=== PATIENT | male | born 1945 | race Caucasian/White ===

== ENCOUNTER 2016-11-14 09:10 | Outpatient (CLI) | payer MEDICARE, OTHER ==
[2016-11-14 10:59] LABS: Anion Gap 16 mmol/L (10-20); BUN (Urea Nitrogen) 19 mg/dL (8.4-25.7); Calc. Creatinine Clearance 0 mL/min (70-130); Calcium 9.6 mg/dL (7.8-10.44); Carbon Dioxide 24 mmol/L (23-31); Chloride 104 mmol/L (98-107); Estimated GFR-MDRD 51; Glucose 119 mg/dL (80-115); Potassium 4.9 mmol/L (3.5-5.1); Sodium 139 mmol/L (136-145)
== END 2016-11-14 09:11 | disposition home or self-care (01) ==
LOC: NAV LAB 09:10
PROVIDERS: ATTEND Internal Medicine Cardiovascular Disease
DX: I10 Essential (primary) hypertension (principal); E66.9 Obesity, unspecified; Z95.1 Presence of aortocoronary bypass graft
CPT/HCPCS: 36415; 80048

== ENCOUNTER 2016-12-26 09:59 | Outpatient (CLI) | payer MEDICARE, OTHER ==
[2016-12-26 12:27] LABS: #Basophils 0.1 thou/uL (0.0-0.2); #Eosinphils 0.2 thou/uL (0.0-0.7); #Lymphocytes 2.2 thou/uL (1.20-3.40); #Monocytes 0.5 thou/uL (0.11-0.59); #Neutrophils 4.4 thou/uL (1.40-6.50); %Basophils 0.8 % (0.0-1.0); %Eosinophils 2.9 % (0.0-10.0); %Lymphocytes 29.3 % (21.0-51.0); %Monocytes 6.8 % (0.0-10.0); %Neutrophils 60.2 % (42.0-75.0); Hemoglobin 15.6 g/dL (14.0-18.0); Mean Corpuscular HGB CONC 32.4 g/dL (32.0-36.0); Mean Corpuscular Hemoglobin 30.1 pg (27.0-31.0); Mean Corpuscular Volume 92.7 fl (80.0-94.0); Mean Platelet Volume 8.4 fL (7.4-10.4); Platelet Count 224 thou/uL (130-400); RBC Distribution Width 12.8 % (11.5-14.5); Red Blood Cell (RBC) Count 5.19 mill/uL (4.70-6.10); White Blood Cell (WBC) Count 7.4 thou/uL (4.8-10.8)
[2016-12-26 12:30] LABS: Hemoglobin A1c 6.3 % (4.0-6.0)
[2016-12-26 12:38] LABS: ALT (SGPT) 18 U/L (8-55); AST (SGOT) 19 U/L (5-34); Albumin 4.7 g/dL (3.4-4.8); Alkaline Phosphatase 77 U/L (40-150); Anion Gap 17 mmol/L (10-20); BUN (Urea Nitrogen) 24 mg/dL (8.4-25.7); Bilirubin, Total 0.6 mg/dL (0.2-1.2); Calc. Creatinine Clearance 0 mL/min (70-130); Calcium 10.2 mg/dL (7.8-10.44); Carbon Dioxide 26 mmol/L (23-31); Cardiac Risk 6.5 (Less than 4.5); Chloride 102 mmol/L (98-107); Cholesterol 214 mg/dl (< 200 Desired); Estimated GFR-MDRD 48; Globulin 2.8 g/dL (2.4-3.5); Glucose 128 mg/dL (80-115); HDL Cholesterol 33 mg/dL (>60 Neg Risk); LDL Cholesterol, Calculated 118 mg/dL; Protein, Total 7.5 g/dL (5.8-8.1); Sodium 140 mmol/L (136-145); Triglycerides 317 mg/dL (Less than 150)
[2016-12-26 18:06] LABS: Creatinine, Urine 96.8 mg/dL (63-166); Microalbumin Urine 2.7 mg/dL (0.5-50.0); Microalbumin/Creat Ratio 27.9 mg/g (Less than 30)
== END 2016-12-26 10:00 | disposition home or self-care (01) ==
LOC: NAVSJIPCSP 09:59
PROVIDERS: ATTEND Internal Medicine
DX: E78.2 Mixed hyperlipidemia (principal); I10 Essential (primary) hypertension; Z95.1 Presence of aortocoronary bypass graft; W57.XXXA Bitten or stung by nonvenomous insect and other nonvenomous arthropods, initial encounter
CPT/HCPCS: 36415; 80053; 80061; 82043; 83036; 85025; 86618

== ENCOUNTER 2017-02-16 12:40 | Emergency (ER) | payer MEDICARE, OTHER ==
[2017-02-16] MEDS ORDERED: Adacel (T-DAP) 0.5 ML VIAL ONE (13:13)
[2017-02-16] MEDS ORDERED: cefTRIAXone\\ROCEPHIN 1 GM VIAL ONE (13:13)
[2017-02-16] MEDS ORDERED: Lidocaine 1% 20 ML MDV ONE (13:14)
[2017-02-16] MEDS ORDERED: Triple Antibiotic Oint 1 GM Packet ONE (13:28)
== END 2017-02-16 13:35 | disposition home or self-care (01) ==
LOC: NAV ERS 12:40
DX: S91.332A Puncture wound without foreign body, left foot, initial encounter (principal); L03.116 Cellulitis of left lower limb; E11.9 Type 2 diabetes mellitus without complications; E78.5 Hyperlipidemia, unspecified; I10 Essential (primary) hypertension; E66.9 Obesity, unspecified; Z79.82 Long term (current) use of aspirin; Z79.899 Other long term (current) drug therapy; W45.0XXA Nail entering through skin, initial encounter
CPT/HCPCS: 87070; 87077; 87186; 87205; 90471; 90715; 96372; J0696; J2001

== ENCOUNTER 2017-03-10 09:15 | Outpatient (CLI) | payer MEDICARE, OTHER ==
[2017-03-10 09:58] LABS: Cardiac Risk 4.4 (Less than 4.5)
== END 2017-03-10 09:16 | disposition home or self-care (01) ==
LOC: NAV LAB 09:15
PROVIDERS: ATTEND Internal Medicine Cardiovascular Disease
DX: I10 Essential (primary) hypertension (principal); R07.89 Other chest pain; Z95.1 Presence of aortocoronary bypass graft
CPT/HCPCS: 36415; 80061

== ENCOUNTER 2018-04-14 10:56 | Emergency (ER) | payer MEDICARE, OTHER | END 2018-04-14 11:28 | disposition home or self-care (01) | LOC: NAV ERS 10:56 | DX: R21 Rash and other nonspecific skin eruption (principal); E78.5 Hyperlipidemia, unspecified; I25.10 Atherosclerotic heart disease of native coronary artery without angina pectoris; I10 Essential (primary) hypertension; E66.9 Obesity, unspecified; Z79.899 Other long term (current) drug therapy; Z79.82 Long term (current) use of aspirin | CPT/HCPCS: 99282 ==

== ENCOUNTER 2018-12-19 22:33 | Emergency (ER) | payer MEDICARE, OTHER ==
[2018-12-19] MEDS ORDERED: Sodium Chloride 0.9% 1,000 ML ONE (22:54)
[2018-12-19 23:02] LABS: #Basophils 0.1 thou/uL (0.0-0.2); #Eosinphils 0.2 thou/uL (0.0-0.7); #Monocytes 0.8 thou/uL (0.11-0.59); #Neutrophils 6.5 thou/uL (1.40-6.50); %Basophils 1.1 % (0.0-1.0); %Eosinophils 1.7 % (0.0-10.0); %Lymphocytes 20.7 % (21.0-51.0); %Monocytes 8.8 % (0.0-10.0); %Neutrophils 67.8 % (42.0-75.0); Hemoglobin 14.5 g/dL (14.0-18.0); Mean Corpuscular HGB CONC 33.9 g/dL (32.0-36.0); Mean Corpuscular Volume 91.5 fL (78.0-98.0); Mean Platelet Volume 7.5 fL (7.4-10.4); Platelet Count 241 thou/uL (130-400); RBC Distribution Width 12.8 % (11.5-14.5); Red Blood Cell (RBC) Count 4.68 mill/uL (4.70-6.10); White Blood Cell (WBC) Count 9.6 thou/uL (4.8-10.8)
[2018-12-19] MEDS ORDERED: Ondansetron PF 4 MG/2 ML Vial ONE (23:05)
[2018-12-19 23:06] LABS: MDiff Complete? YES; Manual Diff?? NO
[2018-12-19 23:15] LABS: Lactic Acid 2.1 mmol/L (0.5-2.2)
[2018-12-19 23:23] LABS: ALT (SGPT) 25 U/L (8-55); AST (SGOT) 30 U/L (5-34); Albumin 4.1 g/dL (3.4-4.8); Alkaline Phosphatase 65 U/L (40-150); Anion Gap 17 mmol/L (10-20); BUN (Urea Nitrogen) 25 mg/dL (8.4-25.7); Bilirubin, Total 0.3 mg/dL (0.2-1.2); CK (CPK) 183 U/L (30-200); Calc. Creatinine Clearance 0 mL/min (70-130); Calcium 9.5 mg/dL (7.8-10.44); Carbon Dioxide 23 mmol/L (23-31); Chloride 103 mmol/L (98-107); Estimated GFR-MDRD 42; Globulin 3.2 g/dL (2.4-3.5); Glucose 195 mg/dL (83-110); Magnesium 2.8 mg/dL (1.6-2.6); Potassium 3.9 mmol/L (3.5-5.1); Protein, Total 7.3 g/dL (5.8-8.1); Sodium 139 mmol/L (136-145)
== END 2018-12-20 00:19 | disposition home or self-care (01) ==
LOC: NAV ERS 22:33
DX: T67.5XXA Heat exhaustion, unspecified, initial encounter (principal); I12.9 Hypertensive chronic kidney disease with stage 1 through stage 4 chronic kidney disease, or unspecified chronic kidney disease; N18.9 Chronic kidney disease, unspecified; E78.5 Hyperlipidemia, unspecified; E66.9 Obesity, unspecified; Z79.899 Other long term (current) drug therapy; Z79.82 Long term (current) use of aspirin
CPT/HCPCS: 36416; 80053; 82550; 83605; 83735; 84484; 85025; 93005; 94760; 96374; 36415-59; J2405; J7050

== ENCOUNTER 2019-08-30 20:54 | Emergency (ER) | payer MEDICARE, OTHER | END 2019-08-30 21:21 | disposition home or self-care (01) | LOC: NAV ERS 20:54 | DX: B34.9 Viral infection, unspecified (principal); E66.9 Obesity, unspecified; I25.10 Atherosclerotic heart disease of native coronary artery without angina pectoris; R73.03 Prediabetes; I10 Essential (primary) hypertension; E78.5 Hyperlipidemia, unspecified; E78.00 Pure hypercholesterolemia, unspecified; Z79.82 Long term (current) use of aspirin; Z79.899 Other long term (current) drug therapy | CPT/HCPCS: 99283 ==

== ENCOUNTER 2020-06-29 20:04 | Emergency (ER) | payer MEDICARE, OTHER ==
[2020-06-29] MEDS ORDERED: Ketorolac Tromethamine 30 MG/ML VIAL ONE (21:04)
--- NOTE | 2020-06-29 22:13 | RAD ---
RIGHT SHOULDER RADIOGRAPHS THREE VIEWS: 06/29/20 PROVIDED CLINICAL HISTORY: Pain status post injury. FINDINGS: There is no evidence for fracture or other acute osseous abnormality. If there is persistent clinical concern, conservative management and follow-up imaging are advised. IMPRESSION: As above. POS: [facility]
== END 2020-06-29 21:24 | disposition home or self-care (01) ==
LOC: NAV ERS 20:04
DX: M25.511 Pain in right shoulder (principal); E78.5 Hyperlipidemia, unspecified; E78.00 Pure hypercholesterolemia, unspecified; Z79.82 Long term (current) use of aspirin; Z79.899 Other long term (current) drug therapy; V89.2XXA Person injured in unspecified motor-vehicle accident, traffic, initial encounter
CPT/HCPCS: 96372; J1885

== ENCOUNTER 2020-12-19 16:12 | Emergency (ER) | payer MEDICARE, OTHER ==
[2020-12-19] MEDS ORDERED: predniSONE 20 MG TAB ONE (17:09)
== END 2020-12-19 17:15 | disposition home or self-care (01) ==
LOC: NAV ERS 16:12
DX: R21 Rash and other nonspecific skin eruption (principal); E78.5 Hyperlipidemia, unspecified; I10 Essential (primary) hypertension; Z79.899 Other long term (current) drug therapy
CPT/HCPCS: 99282; J7512

== ENCOUNTER 2021-04-14 15:16 | Inpatient (IN) | payer MEDICARE, OTHER ==
[2021-04-14] MEDS ORDERED: Nitroglycerin 0.4 MG TAB (25 Tab Bottle) SL PRN (22:40)
[2021-04-14] MEDS ORDERED: oxyCODONE 5 MG TAB PO PRN (22:41)
[2021-04-14] MEDS ORDERED: traMADol HCl 50 MG TAB PO PRN (22:44)
[2021-04-15] MEDS: Hyoscyamine Sulfate SL 0.125 mg Tablet SL PRN ×4 (02:51→20:28)
[2021-04-15] MEDS: Betamethasone Val 0.1% OINT 15 GM TUBE TOP PRN (02:51)
[2021-04-15 05:48] LABS: #Basophils 0.1 thou/uL (0.0-0.2); #Eosinphils 0.2 thou/uL (0.0-0.7); #Lymphocytes 1.4 thou/uL (1.20-3.40); #Monocytes 0.9 thou/uL (0.11-0.59); #Neutrophils 6.5 thou/uL (1.40-6.50); %Lymphocytes 15.8 % (21.0-51.0); %Monocytes 9.5 % (0.0-10.0); %Neutrophils 71.6 % (42.0-75.0); Hemoglobin 12.1 g/dL (14.0-18.0); Mean Corpuscular HGB CONC 32.5 g/dL (32.0-36.0); Mean Corpuscular Hemoglobin 30.9 pg (27.0-31.0); Mean Platelet Volume 8.1 fL (7.4-10.4); Platelet Count 217 thou/uL (130-400); RBC Distribution Width 12.9 % (11.5-14.5); Red Blood Cell (RBC) Count 3.92 mill/uL (4.70-6.10); White Blood Cell (WBC) Count 9.1 thou/uL (4.8-10.8)
[2021-04-15 05:53] LABS: Bilirubin Negative (Negative); Blood, Urine Large (Negative); Clarity Clear (Clear); Glucose, Urine (Dipstick) Negative (Negative); Ketone, Urine Negative (Negative); Leukocyte Trace (Negative); Nitrite Negative (Negative); Protein, Urine (Dipstick) Negative (Neg-Trace); Specific Gravity, Urine 1.015 (1.005-1.030); Urobilinogen 0.2 mg/dL (Less than 2)
[2021-04-15 05:58] LABS: Bacteria/HPF None Seen HPF (None Seen); RBC/HPF 0-3 HPF (0-3); Squamous Epithelial None Seen HPF (0-3); WBC/HPF 0-3 HPF (0-3)
[2021-04-15 06:01] LABS: ALT (SGPT) 8 U/L (8-55); AST (SGOT) 12 U/L (5-34); Albumin 3.2 g/dL (3.4-4.8); Alkaline Phosphatase 54 U/L (40-110); Anion Gap 11 mmol/L (10-20); BUN (Urea Nitrogen) 27 mg/dL (8.4-25.7); Bilirubin, Total 0.7 mg/dL (0.2-1.2); Calc. Creatinine Clearance 75 mL/min (70-130); Calcium 9.5 mg/dL (7.8-10.44); Carbon Dioxide 25 mmol/L (23-31); Chloride 102 mmol/L (98-107); Globulin 2.9 g/dL (2.4-3.5); Glucose 168 mg/dL (83-110); Potassium 4.4 mmol/L (3.5-5.1); Protein, Total 6.1 g/dL (5.8-8.1); Sodium 134 mmol/L (136-145)
[2021-04-15] MEDS ORDERED: Amitriptyline HCl 10 MG TAB PO SCH (09:00)
[2021-04-15] MEDS: Icosapent Ethyl 1 GM CAPSULE PO SCH ×2 (10:16→15:56)
[2021-04-15] MEDS: Rosuvastatin 10 MG TAB PO SCH (10:17)
[2021-04-15] MEDS: Losartan Potassium 50 MG TAB PO SCH (10:17)
[2021-04-15] MEDS: Magnesium Oxide 400 MG TAB PO SCH (10:17)
[2021-04-15] MEDS: Carvedilol 6.25 MG TAB PO SCH ×2 (10:17→20:28)
[2021-04-15] MEDS: Doxycycline 100 MG CAP PO SCH (10:17)
[2021-04-15] MEDS: Calcium Carbonate 600 MG + Vit D TAB PO SCH ×2 (10:18→15:56)
[2021-04-15] MEDS: Docusate 100 MG CAP PO SCH ×2 (10:18→20:28)
[2021-04-15] MEDS: Aspirin 81 mg Enteric Coated Tablet PO SCH (10:18)
[2021-04-15] MEDS: CYANOCOBALAMIN 100 MCG PO SCH (10:18)
[2021-04-15] MEDS: Amitriptyline HCl 10 MG TAB PO SCH (20:11)
[2021-04-16] MEDS: Hyoscyamine Sulfate SL 0.125 mg Tablet SL PRN ×3 (07:19→20:12)
[2021-04-16] MEDS: Losartan Potassium 50 MG TAB PO SCH (08:43)
[2021-04-16] MEDS: Icosapent Ethyl 1 GM CAPSULE PO SCH ×2 (08:44→17:38)
[2021-04-16] MEDS: Aspirin 81 mg Enteric Coated Tablet PO SCH (08:45)
[2021-04-16] MEDS: Docusate 100 MG CAP PO SCH ×2 (08:45→20:11)
[2021-04-16] MEDS: Calcium Carbonate 600 MG + Vit D TAB PO SCH ×2 (08:45→17:38)
[2021-04-16] MEDS: Rosuvastatin 10 MG TAB PO SCH (08:46)
[2021-04-16] MEDS: Magnesium Oxide 400 MG TAB PO SCH (08:46)
[2021-04-16] MEDS: Doxycycline 100 MG CAP PO SCH (08:47)
[2021-04-16] MEDS: Carvedilol 6.25 MG TAB PO SCH ×2 (08:54→20:11)
[2021-04-16] MEDS: CYANOCOBALAMIN 100 MCG PO SCH (12:42)
[2021-04-16 17:03] LABS: SARS-CoV-2 PCR by NAA Not Detected (NotDetected)
[2021-04-16] MEDS: Amitriptyline HCl 10 MG TAB PO SCH (20:21)
[2021-04-17] MEDS: Hyoscyamine Sulfate SL 0.125 mg Tablet SL PRN (05:18)
[2021-04-17] MEDS: Icosapent Ethyl 1 GM CAPSULE PO SCH ×2 (08:20→18:42)
[2021-04-17] MEDS: Calcium Carbonate 600 MG + Vit D TAB PO SCH ×2 (08:21→18:42)
[2021-04-17] MEDS: Magnesium Oxide 400 MG TAB PO SCH (08:21)
[2021-04-17] MEDS: Rosuvastatin 10 MG TAB PO SCH (08:21)
[2021-04-17] MEDS: Losartan Potassium 50 MG TAB PO SCH (08:22)
[2021-04-17] MEDS: Doxycycline 100 MG CAP PO SCH (08:22)
[2021-04-17] MEDS: Aspirin 81 mg Enteric Coated Tablet PO SCH (08:22)
[2021-04-17] MEDS: Docusate 100 MG CAP PO SCH ×2 (08:22→20:36)
[2021-04-17] MEDS: Carvedilol 6.25 MG TAB PO SCH ×2 (08:22→20:38)
[2021-04-17] MEDS: CYANOCOBALAMIN 100 MCG PO SCH (08:23)
[2021-04-17] MEDS: Amitriptyline HCl 10 MG TAB PO SCH (20:35)
[2021-04-17] MEDS: Ubidecarenone 50 MG CAP PO SCH (20:36)
[2021-04-17] MEDS: Acetaminophen 500 MG TAB PO PRN (20:37)
[2021-04-17] MEDS: Betamethasone Val 0.1% OINT 15 GM TUBE TOP PRN (20:40)
[2021-04-18 06:35] LABS: #Basophils 0.1 thou/uL (0.0-0.2); #Eosinphils 0.2 thou/uL (0.0-0.7); #Lymphocytes 1.2 thou/uL (1.20-3.40); #Monocytes 0.8 thou/uL (0.11-0.59); #Neutrophils 4.5 thou/uL (1.40-6.50); %Basophils 1.2 % (0.0-1.0); %Eosinophils 2.7 % (0.0-10.0); %Lymphocytes 18.2 % (21.0-51.0); %Monocytes 11.5 % (0.0-10.0); %Neutrophils 66.3 % (42.0-75.0); Hemoglobin 11.4 g/dL (14.0-18.0); Mean Corpuscular HGB CONC 31.8 g/dL (32.0-36.0); Mean Corpuscular Hemoglobin 30.4 pg (27.0-31.0); Mean Corpuscular Volume 95.7 fL (78.0-98.0); Mean Platelet Volume 6.9 fL (7.4-10.4); Platelet Count 246 thou/uL (130-400); RBC Distribution Width 12.8 % (11.5-14.5); Red Blood Cell (RBC) Count 3.75 mill/uL (4.70-6.10); White Blood Cell (WBC) Count 6.8 thou/uL (4.8-10.8)
[2021-04-18 06:42] LABS: Anion Gap 11 mmol/L (10-20); BUN (Urea Nitrogen) 27 mg/dL (8.4-25.7); Calc. Creatinine Clearance 69 mL/min (70-130); Calcium 10.2 mg/dL (7.8-10.44); Carbon Dioxide 33 mmol/L (23-31); Chloride 100 mmol/L (98-107); Glucose 144 mg/dL (83-110); Potassium 5.6 mmol/L (3.5-5.1); Sodium 138 mmol/L (136-145)
[2021-04-18] MEDS: Docusate 100 MG CAP PO SCH ×2 (08:51→20:36)
[2021-04-18] MEDS: Carvedilol 6.25 MG TAB PO SCH ×2 (08:51→20:37)
[2021-04-18] MEDS: Aspirin 81 mg Enteric Coated Tablet PO SCH (08:51)
[2021-04-18] MEDS: Acetaminophen 500 MG TAB PO PRN (08:52)
[2021-04-18] MEDS: Doxycycline 100 MG CAP PO SCH (08:53)
[2021-04-18] MEDS: Calcium Carbonate 600 MG + Vit D TAB PO SCH ×2 (08:53→18:47)
[2021-04-18] MEDS: Icosapent Ethyl 1 GM CAPSULE PO SCH ×2 (08:53→18:47)
[2021-04-18] MEDS: Magnesium Oxide 400 MG TAB PO SCH (08:54)
[2021-04-18] MEDS: Rosuvastatin 10 MG TAB PO SCH (08:54)
[2021-04-18] MEDS: Losartan Potassium 50 MG TAB PO SCH (08:55)
[2021-04-18] MEDS: CYANOCOBALAMIN 100 MCG PO SCH (08:56)
[2021-04-18] MEDS: Hyoscyamine Sulfate SL 0.125 mg Tablet SL PRN (18:47)
[2021-04-18] MEDS: Ubidecarenone 50 MG CAP PO SCH (20:36)
[2021-04-18] MEDS: Amitriptyline HCl 10 MG TAB PO SCH (20:36)
[2021-04-18] MEDS ORDERED: Amlodipine 5 MG TAB PO SCH ×2 (21:00)
[2021-04-19] MEDS ORDERED: Amlodipine 5 MG TAB PO SCH (09:00)
[2021-04-19] MEDS: Icosapent Ethyl 1 GM CAPSULE PO SCH ×2 (09:03→17:34)
[2021-04-19] MEDS: Rosuvastatin 10 MG TAB PO SCH (09:04)
[2021-04-19] MEDS: Sulfameth/Trimethoprim DS 800-160mg TAB PO SCH ×2 (09:04→20:52)
[2021-04-19] MEDS: Docusate 100 MG CAP PO SCH ×2 (09:04→20:53)
[2021-04-19] MEDS: Calcium Carbonate 600 MG + Vit D TAB PO SCH ×2 (09:04→17:35)
[2021-04-19] MEDS: Magnesium Oxide 400 MG TAB PO SCH (09:04)
[2021-04-19] MEDS: Aspirin 81 mg Enteric Coated Tablet PO SCH (09:04)
[2021-04-19] MEDS: Carvedilol 6.25 MG TAB PO SCH ×2 (09:05→20:53)
[2021-04-19] MEDS: Doxycycline 100 MG CAP PO SCH (09:05)
[2021-04-19] MEDS: CYANOCOBALAMIN 100 MCG PO SCH (09:13)
[2021-04-19] MEDS: Betamethasone Val 0.1% OINT 15 GM TUBE TOP PRN (09:14)
[2021-04-19] MEDS: Acetaminophen 500 MG TAB PO PRN (12:25)
[2021-04-19] MEDS: Ubidecarenone 50 MG CAP PO SCH (20:52)
[2021-04-19] MEDS: Amitriptyline HCl 10 MG TAB PO SCH (20:52)
[2021-04-20 06:25] LABS: #Basophils 0.1 thou/uL (0.0-0.2); #Eosinphils 0.2 thou/uL (0.0-0.7); #Lymphocytes 1.2 thou/uL (1.20-3.40); #Monocytes 0.7 thou/uL (0.11-0.59); %Basophils 1.4 % (0.0-1.0); %Eosinophils 3.2 % (0.0-10.0); %Lymphocytes 19.5 % (21.0-51.0); %Monocytes 11.5 % (0.0-10.0); %Neutrophils 64.3 % (42.0-75.0); Hemoglobin 12.5 g/dL (14.0-18.0); Mean Corpuscular HGB CONC 32.2 g/dL (32.0-36.0); Mean Corpuscular Hemoglobin 30.6 pg (27.0-31.0); Mean Corpuscular Volume 95.1 fL (78.0-98.0); Mean Platelet Volume 7.8 fL (7.4-10.4); Platelet Count 267 thou/uL (130-400); RBC Distribution Width 12.8 % (11.5-14.5); Red Blood Cell (RBC) Count 4.08 mill/uL (4.70-6.10); White Blood Cell (WBC) Count 6.2 thou/uL (4.8-10.8)
[2021-04-20 06:34] LABS: Anion Gap 13 mmol/L (10-20); BUN (Urea Nitrogen) 27 mg/dL (8.4-25.7); Calc. Creatinine Clearance 57 mL/min (70-130); Calcium 10.1 mg/dL (7.8-10.44); Carbon Dioxide 29 mmol/L (23-31); Chloride 99 mmol/L (98-107); Glucose 132 mg/dL (83-110); Potassium 4.9 mmol/L (3.5-5.1); Sodium 136 mmol/L (136-145)
[2021-04-20] MEDS: Calcium Carbonate 600 MG + Vit D TAB PO SCH ×2 (07:16→17:02)
[2021-04-20] MEDS: Icosapent Ethyl 1 GM CAPSULE PO SCH ×2 (07:16→17:02)
[2021-04-20] MEDS: Docusate 100 MG CAP PO SCH ×2 (07:16→21:09)
[2021-04-20] MEDS: Sulfameth/Trimethoprim DS 800-160mg TAB PO SCH ×2 (07:17→21:09)
[2021-04-20] MEDS: Magnesium Oxide 400 MG TAB PO SCH (07:17)
[2021-04-20] MEDS: Rosuvastatin 10 MG TAB PO SCH (07:17)
[2021-04-20] MEDS: Acetaminophen 500 MG TAB PO PRN (07:18)
[2021-04-20] MEDS: Doxycycline 100 MG CAP PO SCH (07:18)
[2021-04-20] MEDS: Carvedilol 6.25 MG TAB PO SCH ×2 (07:18→21:09)
[2021-04-20] MEDS: Aspirin 81 mg Enteric Coated Tablet PO SCH (07:19)
[2021-04-20] MEDS: CYANOCOBALAMIN 100 MCG PO SCH (07:19)
[2021-04-20] MEDS: Betamethasone Val 0.1% OINT 15 GM TUBE TOP PRN ×2 (17:02→21:10)
[2021-04-20] MEDS: Amitriptyline HCl 10 MG TAB PO SCH (21:09)
[2021-04-20] MEDS: Ubidecarenone 50 MG CAP PO SCH (21:09)
[2021-04-21] MEDS: Calcium Carbonate 600 MG + Vit D TAB PO SCH ×2 (09:34→17:31)
[2021-04-21] MEDS: Icosapent Ethyl 1 GM CAPSULE PO SCH ×2 (09:34→17:30)
[2021-04-21] MEDS: Carvedilol 6.25 MG TAB PO SCH ×2 (09:34→20:46)
[2021-04-21] MEDS: Rosuvastatin 10 MG TAB PO SCH (09:35)
[2021-04-21] MEDS: Doxycycline 100 MG CAP PO SCH (09:35)
[2021-04-21] MEDS: Aspirin 81 mg Enteric Coated Tablet PO SCH (09:35)
[2021-04-21] MEDS: Docusate 100 MG CAP PO SCH ×2 (09:35→20:46)
[2021-04-21] MEDS: CYANOCOBALAMIN 100 MCG PO SCH (09:35)
[2021-04-21] MEDS: Sulfameth/Trimethoprim DS 800-160mg TAB PO SCH ×2 (09:35→20:46)
[2021-04-21] MEDS: Magnesium Oxide 400 MG TAB PO SCH (09:35)
[2021-04-21] MEDS: Acetaminophen 500 MG TAB PO PRN (09:36)
[2021-04-21] MEDS: predniSONE 20 MG TAB PO SCH (17:31)
[2021-04-21] MEDS ORDERED: Dextrose 50% Abboject 50 ML SYRINGE SLOW IVP PRN (19:29)
[2021-04-21] MEDS ORDERED: HumaLOG 300 UNITS/3 ML VIAL SC PRN (19:29)
[2021-04-21] MEDS: Ubidecarenone 50 MG CAP PO SCH (20:46)
[2021-04-21] MEDS: Amitriptyline HCl 10 MG TAB PO SCH (20:46)
[2021-04-22] MEDS: Icosapent Ethyl 1 GM CAPSULE PO SCH ×2 (08:50→17:28)
[2021-04-22] MEDS: Magnesium Oxide 400 MG TAB PO SCH (08:51)
[2021-04-22] MEDS: Docusate 100 MG CAP PO SCH ×2 (08:51→20:55)
[2021-04-22] MEDS: Rosuvastatin 10 MG TAB PO SCH (08:51)
[2021-04-22] MEDS: Calcium Carbonate 600 MG + Vit D TAB PO SCH ×2 (08:51→17:28)
[2021-04-22] MEDS: Sulfameth/Trimethoprim DS 800-160mg TAB PO SCH ×2 (08:51→20:55)
[2021-04-22] MEDS: Carvedilol 6.25 MG TAB PO SCH ×2 (08:52→20:56)
[2021-04-22] MEDS: Doxycycline 100 MG CAP PO SCH (08:52)
[2021-04-22] MEDS: Aspirin 81 mg Enteric Coated Tablet PO SCH (08:53)
[2021-04-22] MEDS: CYANOCOBALAMIN 100 MCG PO SCH (08:53)
[2021-04-22] MEDS: predniSONE 20 MG TAB PO SCH (17:28)
[2021-04-22] MEDS: Amitriptyline HCl 10 MG TAB PO SCH (20:55)
[2021-04-22] MEDS: Ubidecarenone 50 MG CAP PO SCH (20:56)
[2021-04-23 05:17] LABS: #Lymphocytes 0.8 thou/uL (1.20-3.40); #Monocytes 0.4 thou/uL (0.11-0.59); #Neutrophils 9.7 thou/uL (1.40-6.50); %Basophils 0.2 % (0.0-1.0); %Lymphocytes 7.6 % (21.0-51.0); %Monocytes 3.5 % (0.0-10.0); %Neutrophils 88.7 % (42.0-75.0); Hemoglobin 12.2 g/dL (14.0-18.0); Mean Corpuscular HGB CONC 33.1 g/dL (32.0-36.0); Mean Corpuscular Hemoglobin 31.2 pg (27.0-31.0); Mean Corpuscular Volume 94.2 fL (78.0-98.0); Mean Platelet Volume 7.6 fL (7.4-10.4); Platelet Count 301 thou/uL (130-400); White Blood Cell (WBC) Count 10.9 thou/uL (4.8-10.8)
[2021-04-23 05:33] LABS: Anion Gap 12 mmol/L (10-20); BUN (Urea Nitrogen) 40 mg/dL (8.4-25.7); Calc. Creatinine Clearance 43 mL/min (70-130); Calcium 10.2 mg/dL (7.8-10.44); Carbon Dioxide 28 mmol/L (23-31); Chloride 100 mmol/L (98-107); Glucose 190 mg/dL (83-110); Potassium 6.4 mmol/L (3.5-5.1); Sodium 134 mmol/L (136-145)
[2021-04-23 06:24] VITALS: BMI 35.4
[2021-04-23] MEDS: Magnesium Oxide 400 MG TAB PO SCH (08:32)
[2021-04-23] MEDS: Rosuvastatin 10 MG TAB PO SCH (08:32)
[2021-04-23] MEDS: Sulfameth/Trimethoprim DS 800-160mg TAB PO SCH ×2 (08:32→21:09)
[2021-04-23] MEDS: Doxycycline 100 MG CAP PO SCH (08:32)
[2021-04-23] MEDS: Icosapent Ethyl 1 GM CAPSULE PO SCH ×2 (08:32→17:19)
[2021-04-23] MEDS: Calcium Carbonate 600 MG + Vit D TAB PO SCH ×2 (08:33→17:19)
[2021-04-23] MEDS: Aspirin 81 mg Enteric Coated Tablet PO SCH (08:33)
[2021-04-23] MEDS: Docusate 100 MG CAP PO SCH ×2 (08:33→21:10)
[2021-04-23] MEDS: Carvedilol 6.25 MG TAB PO SCH ×2 (08:33→21:11)
[2021-04-23] MEDS: CYANOCOBALAMIN 100 MCG PO SCH (08:34)
[2021-04-23 14:17] LABS: Anion Gap 13 mmol/L (10-20); BUN (Urea Nitrogen) 42 mg/dL (8.4-25.7); Calc. Creatinine Clearance 39 mL/min (70-130); Calcium 10.1 mg/dL (7.8-10.44); Carbon Dioxide 29 mmol/L (23-31); Chloride 97 mmol/L (98-107); Glucose 258 mg/dL (83-110); Potassium 5.3 mmol/L (3.5-5.1); Sodium 134 mmol/L (136-145)
[2021-04-23] MEDS: predniSONE 20 MG TAB PO SCH (17:19)
[2021-04-23] MEDS: Betamethasone Val 0.1% OINT 15 GM TUBE TOP PRN (21:09)
[2021-04-23] MEDS: Ubidecarenone 50 MG CAP PO SCH (21:10)
[2021-04-23] MEDS: Amitriptyline HCl 10 MG TAB PO SCH (21:11)
[2021-04-24 06:55] LABS: Anion Gap 13 mmol/L (10-20); BUN (Urea Nitrogen) 40 mg/dL (8.4-25.7); Calc. Creatinine Clearance 46 mL/min (70-130); Calcium 10.2 mg/dL (7.8-10.44); Carbon Dioxide 28 mmol/L (23-31); Chloride 100 mmol/L (98-107); Glucose 167 mg/dL (83-110); Potassium 5.7 mmol/L (3.5-5.1); Sodium 135 mmol/L (136-145)
[2021-04-24] MEDS: Sulfameth/Trimethoprim DS 800-160mg TAB PO SCH ×2 (08:45→20:41)
[2021-04-24] MEDS: Calcium Carbonate 600 MG + Vit D TAB PO SCH ×2 (08:45→17:28)
[2021-04-24] MEDS: Rosuvastatin 10 MG TAB PO SCH (08:46)
[2021-04-24] MEDS: Carvedilol 6.25 MG TAB PO SCH ×2 (08:47→20:41)
[2021-04-24] MEDS: Doxycycline 100 MG CAP PO SCH (08:48)
[2021-04-24] MEDS: Docusate 100 MG CAP PO SCH ×2 (08:48→20:40)
[2021-04-24] MEDS: Magnesium Oxide 400 MG TAB PO SCH (08:48)
[2021-04-24] MEDS: Aspirin 81 mg Enteric Coated Tablet PO SCH (08:48)
[2021-04-24] MEDS: Icosapent Ethyl 1 GM CAPSULE PO SCH ×2 (08:49→17:27)
[2021-04-24] MEDS: CYANOCOBALAMIN 100 MCG PO SCH (08:50)
[2021-04-24 17:05] LABS: Anion Gap 16 mmol/L (10-20); BUN (Urea Nitrogen) 44 mg/dL (8.4-25.7); Calc. Creatinine Clearance 40 mL/min (70-130); Carbon Dioxide 25 mmol/L (23-31); Chloride 97 mmol/L (98-107); Glucose 153 mg/dL (83-110); Potassium 4.1 mmol/L (3.5-5.1); Sodium 134 mmol/L (136-145)
[2021-04-24] MEDS: predniSONE 10 MG TAB PO SCH (17:28)
[2021-04-24] MEDS: Ubidecarenone 50 MG CAP PO SCH (20:40)
[2021-04-24] MEDS: Amitriptyline HCl 10 MG TAB PO SCH (20:41)
[2021-04-25 08:18] LABS: SARS-CoV-2 PCR by NAA Not Detected (NotDetected)
[2021-04-25] MEDS: Carvedilol 6.25 MG TAB PO SCH ×2 (08:21→17:40)
[2021-04-25] MEDS: Calcium Carbonate 600 MG + Vit D TAB PO SCH ×2 (08:21→17:40)
[2021-04-25] MEDS: Rosuvastatin 10 MG TAB PO SCH (08:22)
[2021-04-25] MEDS: Doxycycline 100 MG CAP PO SCH (08:22)
[2021-04-25] MEDS: Magnesium Oxide 400 MG TAB PO SCH (08:22)
[2021-04-25] MEDS: Icosapent Ethyl 1 GM CAPSULE PO SCH ×2 (08:23→17:39)
[2021-04-25] MEDS: Aspirin 81 mg Enteric Coated Tablet PO SCH (08:23)
[2021-04-25] MEDS: Docusate 100 MG CAP PO SCH ×2 (08:23→20:29)
[2021-04-25] MEDS: CYANOCOBALAMIN 100 MCG PO SCH (08:23)
[2021-04-25] MEDS: Sulfameth/Trimethoprim DS 800-160mg TAB PO SCH (08:24)
[2021-04-25] MEDS: Sodium Chloride 0.9% 1,000 ML IV SCH (15:45)
[2021-04-25] MEDS: predniSONE 10 MG TAB PO SCH (17:39)
[2021-04-25] MEDS: Amitriptyline HCl 10 MG TAB PO SCH (20:29)
[2021-04-25] MEDS: Ubidecarenone 50 MG CAP PO SCH (20:29)
[2021-04-26] MEDS: Sodium Chloride 0.9% 1,000 ML IV SCH ×2 (00:41→17:37)
[2021-04-26 07:13] LABS: Anion Gap 11 mmol/L (10-20); BUN (Urea Nitrogen) 38 mg/dL (8.4-25.7); Calc. Creatinine Clearance 48 mL/min (70-130); Carbon Dioxide 29 mmol/L (23-31); Chloride 101 mmol/L (98-107); Glucose 167 mg/dL (83-110); Potassium 5.4 mmol/L (3.5-5.1); Sodium 136 mmol/L (136-145)
[2021-04-26] MEDS: Aspirin 81 mg Enteric Coated Tablet PO SCH (08:42)
[2021-04-26] MEDS: Icosapent Ethyl 1 GM CAPSULE PO SCH ×2 (08:42→17:23)
[2021-04-26] MEDS: Calcium Carbonate 600 MG + Vit D TAB PO SCH ×2 (08:42→17:28)
[2021-04-26] MEDS: Docusate 100 MG CAP PO SCH ×2 (08:42→20:21)
[2021-04-26] MEDS: Carvedilol 6.25 MG TAB PO SCH ×2 (08:43→17:25)
[2021-04-26] MEDS: Magnesium Oxide 400 MG TAB PO SCH (08:43)
[2021-04-26] MEDS: CYANOCOBALAMIN 100 MCG PO SCH (08:44)
[2021-04-26] MEDS: Doxycycline 100 MG CAP PO SCH (08:44)
[2021-04-26] MEDS: Rosuvastatin 10 MG TAB PO SCH (08:44)
[2021-04-26] MEDS: predniSONE 10 MG TAB PO SCH (17:28)
[2021-04-26 17:48] LABS: Anion Gap 14 mmol/L (10-20); BUN (Urea Nitrogen) 39 mg/dL (8.4-25.7); Calc. Creatinine Clearance 51 mL/min (70-130); Calcium 10.3 mg/dL (7.8-10.44); Carbon Dioxide 26 mmol/L (23-31); Chloride 100 mmol/L (98-107); Glucose 118 mg/dL (83-110); Potassium 4.2 mmol/L (3.5-5.1); Sodium 136 mmol/L (136-145)
[2021-04-26] MEDS: Ubidecarenone 50 MG CAP PO SCH (20:21)
[2021-04-26] MEDS: Amitriptyline HCl 10 MG TAB PO SCH (20:21)
[2021-04-26] MEDS: Betamethasone Val 0.1% OINT 15 GM TUBE TOP PRN (20:27)
[2021-04-27] MEDS: Sodium Chloride 0.9% 1,000 ML IV SCH (03:03)
[2021-04-27 06:40] LABS: Anion Gap 11 mmol/L (10-20); BUN (Urea Nitrogen) 34 mg/dL (8.4-25.7); Calc. Creatinine Clearance 63 mL/min (70-130); Calcium 9.6 mg/dL (7.8-10.44); Carbon Dioxide 28 mmol/L (23-31); Chloride 102 mmol/L (98-107); Glucose 147 mg/dL (83-110); Potassium 4.8 mmol/L (3.5-5.1); Sodium 136 mmol/L (136-145)
[2021-04-27] MEDS: Carvedilol 6.25 MG TAB PO SCH ×2 (08:24→17:51)
[2021-04-27] MEDS: Rosuvastatin 10 MG TAB PO SCH (08:26)
[2021-04-27] MEDS: Calcium Carbonate 600 MG + Vit D TAB PO SCH ×2 (08:27→17:54)
[2021-04-27] MEDS: Magnesium Oxide 400 MG TAB PO SCH (08:28)
[2021-04-27] MEDS: Doxycycline 100 MG CAP PO SCH (08:28)
[2021-04-27] MEDS: Aspirin 81 mg Enteric Coated Tablet PO SCH (08:29)
[2021-04-27] MEDS: Icosapent Ethyl 1 GM CAPSULE PO SCH ×2 (08:29→17:49)
[2021-04-27] MEDS: Docusate 100 MG CAP PO SCH ×2 (08:33→20:48)
[2021-04-27] MEDS: CYANOCOBALAMIN 100 MCG PO SCH (08:40)
[2021-04-27] MEDS ORDERED: predniSONE 20 MG TAB PO SCH (17:00)
[2021-04-27 17:24] LABS: Anion Gap 12 mmol/L (10-20); BUN (Urea Nitrogen) 34 mg/dL (8.4-25.7); Calc. Creatinine Clearance 63 mL/min (70-130); Calcium 9.5 mg/dL (7.8-10.44); Carbon Dioxide 29 mmol/L (23-31); Chloride 101 mmol/L (98-107); Glucose 106 mg/dL (83-110); Potassium 4.2 mmol/L (3.5-5.1); Sodium 138 mmol/L (136-145)
[2021-04-27] MEDS ORDERED: Losartan 25 MG TAB PO SCH (18:00)
[2021-04-27] MEDS: Ubidecarenone 50 MG CAP PO SCH (20:48)
[2021-04-27] MEDS: Amitriptyline HCl 10 MG TAB PO SCH (20:49)
[2021-04-27] MEDS: Betamethasone Val 0.1% OINT 15 GM TUBE TOP PRN (20:59)
[2021-04-28 07:15] LABS: Anion Gap 12 mmol/L (10-20); BUN (Urea Nitrogen) 31 mg/dL (8.4-25.7); Calc. Creatinine Clearance 63 mL/min (70-130); Calcium 10.2 mg/dL (7.8-10.44); Carbon Dioxide 29 mmol/L (23-31); Chloride 100 mmol/L (98-107); Glucose 127 mg/dL (83-110); Potassium 4.6 mmol/L (3.5-5.1); Sodium 136 mmol/L (136-145)
[2021-04-28 07:16] LABS: #Lymphocytes 1.6 thou/uL (1.20-3.40); #Monocytes 0.7 thou/uL (0.11-0.59); #Neutrophils 8.9 thou/uL (1.40-6.50); %Basophils 0.4 % (0.0-1.0); %Eosinophils 0.1 % (0.0-10.0); %Lymphocytes 13.8 % (21.0-51.0); %Monocytes 6.2 % (0.0-10.0); %Neutrophils 79.4 % (42.0-75.0); Hemoglobin 13.4 g/dL (14.0-18.0); Mean Corpuscular HGB CONC 31.7 g/dL (32.0-36.0); Mean Corpuscular Hemoglobin 30.6 pg (27.0-31.0); Mean Corpuscular Volume 96.5 fL (78.0-98.0); Mean Platelet Volume 7.4 fL (7.4-10.4); Platelet Count 341 thou/uL (130-400); RBC Distribution Width 13.3 % (11.5-14.5); Red Blood Cell (RBC) Count 4.39 mill/uL (4.70-6.10); White Blood Cell (WBC) Count 11.3 thou/uL (4.8-10.8)
[2021-04-28 08:12] VITALS: BP 151/80; TEMP 98.2
[2021-04-28] MEDS: Magnesium Oxide 400 MG TAB PO SCH (08:36)
[2021-04-28] MEDS: Rosuvastatin 10 MG TAB PO SCH (08:37)
[2021-04-28] MEDS: Icosapent Ethyl 1 GM CAPSULE PO SCH (08:38)
[2021-04-28] MEDS: Calcium Carbonate 600 MG + Vit D TAB PO SCH (08:39)
[2021-04-28] MEDS: Docusate 100 MG CAP PO SCH (08:39)
[2021-04-28] MEDS: Doxycycline 100 MG CAP PO SCH (08:39)
[2021-04-28] MEDS: Carvedilol 6.25 MG TAB PO SCH (08:39)
[2021-04-28] MEDS: Aspirin 81 mg Enteric Coated Tablet PO SCH (08:39)
[2021-04-28] MEDS: CYANOCOBALAMIN 100 MCG PO SCH (08:40)
[2021-04-28] MEDS ORDERED: Losartan 25 MG TAB PO SCH (09:00)
[2021-04-28] MEDS ORDERED: Lisinopril 10 MG TAB PO ONE (09:02)
[2021-04-28] MEDS ORDERED: FLU VACC QS2021-22(65YR UP)/PF 240 MCG/0.7 ML SYRINGE IM ONE (13:45)
[2021-04-30] MEDS ORDERED: predniSONE 10 MG TAB PO SCH (17:00)
== END 2021-04-28 14:35 | disposition home or self-care (01) | DRG 948 ==
LOC: NAV ACUTE 19:22
PROVIDERS: ADMIT Family Medicine; ATTEND Family Medicine
DX: R53.1 Weakness (principal); N39.0 Urinary tract infection, site not specified; N17.9 Acute kidney failure, unspecified; L12.0 Bullous pemphigoid; I25.10 Atherosclerotic heart disease of native coronary artery without angina pectoris; E78.5 Hyperlipidemia, unspecified; E11.22 Type 2 diabetes mellitus with diabetic chronic kidney disease; I12.9 Hypertensive chronic kidney disease with stage 1 through stage 4 chronic kidney disease, or unspecified chronic kidney disease; M10.9 Gout, unspecified; N18.30 Chronic kidney disease, stage 3 unspecified; E11.42 Type 2 diabetes mellitus with diabetic polyneuropathy; D64.9 Anemia, unspecified; E87.5 Hyperkalemia; G62.9 Polyneuropathy, unspecified; Z20.822 Contact with and (suspected) exposure to COVID-19; Z85.46 Personal history of malignant neoplasm of prostate; Z90.49 Acquired absence of other specified parts of digestive tract; Z95.1 Presence of aortocoronary bypass graft; Z85.528 Personal history of other malignant neoplasm of kidney
CPT/HCPCS: 36415; 36416; 80048; 80053; 81003; 81015; 85025; 87086; 90471; 90662; G0008; J1815; J7050; J7512; U0003; U0005

== ENCOUNTER 2021-12-02 08:47 | Emergency (ER) | payer MEDICARE, OTHER ==
[2021-12-02] MEDS ORDERED: methylPREDNISolone Acetate 40 mg/ml Vial ONE (09:35)
== END 2021-12-02 09:47 | disposition home or self-care (01) ==
LOC: NAV ERS 08:47
DX: L12.0 Bullous pemphigoid (principal); Z79.899 Other long term (current) drug therapy; E11.9 Type 2 diabetes mellitus without complications; I25.10 Atherosclerotic heart disease of native coronary artery without angina pectoris; E78.5 Hyperlipidemia, unspecified; E78.00 Pure hypercholesterolemia, unspecified; I10 Essential (primary) hypertension
CPT/HCPCS: 96372; 99282; J2920

== ENCOUNTER 2022-03-12 07:33 | Emergency (ER) | payer OTHER | END 2022-03-12 08:25 | disposition home or self-care (01) | LOC: NAV ERS 07:33 | DX: R21 Rash and other nonspecific skin eruption (principal); E78.00 Pure hypercholesterolemia, unspecified; Z79.899 Other long term (current) drug therapy | CPT/HCPCS: 99282 ==

== ENCOUNTER 2022-05-31 14:48 | Emergency (ER) | payer MEDICARE, OTHER ==
[2022-05-31] MEDS ORDERED: predniSONE 20 MG TAB ONE (15:10)
== END 2022-05-31 15:18 | disposition home or self-care (01) ==
LOC: NAV ERS 14:48
DX: R21 Rash and other nonspecific skin eruption (principal); I25.10 Atherosclerotic heart disease of native coronary artery without angina pectoris; E11.9 Type 2 diabetes mellitus without complications; E78.00 Pure hypercholesterolemia, unspecified; Z79.899 Other long term (current) drug therapy; I10 Essential (primary) hypertension
CPT/HCPCS: 99282; J7512

== ENCOUNTER 2023-02-17 02:23 | Emergency (ER) | payer MEDICARE, OTHER ==
[2023-02-17] MEDS ORDERED: methylPREDNISolone Sod Succ/PF 125 MG/2 ML VIAL ONE (03:02)
== END 2023-02-17 03:23 | disposition home or self-care (01) ==
LOC: NAV ERS 02:23
DX: R21 Rash and other nonspecific skin eruption (principal); E11.9 Type 2 diabetes mellitus without complications; E78.00 Pure hypercholesterolemia, unspecified; I10 Essential (primary) hypertension; I25.10 Atherosclerotic heart disease of native coronary artery without angina pectoris; Z79.899 Other long term (current) drug therapy
CPT/HCPCS: 96372; 99282; J2930